=== PATIENT | male | born 1965 | race Caucasian/White ===

== ENCOUNTER 2019-05-10 13:19 | Inpatient (IN) | payer MEDICARE, MEDICAID ==
[~2019-05-10] VITALS: Ht 175.3 cm; Wt 96.6 kg
[~2019-05-10 13:19] MED LIST: ARIP15TA2 PO; QUET300T2 PO; SERT50TA12 PO
[2019-05-10 14:25] LABS: EOSINOPHILS % (AUTO) 0.5 % (1.0-6.0); HEMATOCRIT 46.4 % (41-53); HEMOGLOBIN 15.9 g/dL (13.5-17.5); LYMPHOCYTES # (AUTO) 1.2 K/uL (1.0-4.8); LYMPHOCYTES % (AUTO) 18.6 % (22.0-44.0); MEAN CORPUSCULAR HEMOGLOBIN 30.5 pg (26.0-34.0); MEAN CORPUSCULAR HGB CONC 34.4 G/dL (31.0-37.0); MEAN CORPUSCULAR VOLUME 89 fL (80-100); MONOCYTES # (AUTO) 0.4 K/uL (0.1-1.0); MONOCYTES % (AUTO) 6.5 % (2.0-9.0); NEUTROPHILS # (AUTO) 4.7 K/uL (1.8-7.7); NEUTROPHILS % (AUTO) 73.4 % (40.0-70.0); PLATELET COUNT (AUTO) 255 K/uL (150-450); RED BLOOD CELL COUNT(AUTO) 5.23 MIL/uL (4.50-5.90); RED CELL DISTRIBUTION WIDTH 13.1 % (11.5-14.5)
[2019-05-10 14:27] LABS: GLUCOSE,POINT OF CARE 105 MG/DL (70-110)
[2019-05-10 14:34] LABS: ANION GAP 8 mmol/L (8-16); CALCIUM, TOTAL 9.9 mg/dL (8.8-10.5); CARBON DIOXIDE 28 mmol/L (22-29); CHLORIDE 102 mmol/L (98-107); CREATININE 0.77 mg/dL (0.60-1.30); GLOMERULAR FILTR. RATE CALC > 60 mL/min (>60); GLUCOSE,RANDOM 104 mg/dL (70-110); POTASSIUM 3.9 mmol/L (3.5-5.1); SODIUM SERUM 138 mmol/L (136-145); UREA NITROGEN, BLOOD 10 mg/dL (7-18)
[2019-05-10 14:40] LABS: ALANINE AMINOTRANSFERASE 42 U/L (12-78); ALKALINE PHOSPHATASE 89 U/L (46-116); ASPARTATE AMINOTRANSFERASE 23 U/L (15-37); BILIRUBIN,TOTAL 0.6 mg/dL (0.1-1.0); TOTAL PROTEIN, SERUM 7.5 g/dL (6.4-8.2)
[2019-05-10 14:48] LABS: AMPHET/METH SCREEN,URINE NEGATIVE (NEGATIVE); BARBITURATE SCREEN, URINE NEGATIVE (NEGATIVE); BENZODIAZEPINES SCREEN,URINE NEGATIVE (NEGATIVE); CANNABINOID SCREEN,URINE NEGATIVE (NEGATIVE); COCAINE SCREEN,URINE NEGATIVE (NEGATIVE); METHADONE SCREEN, URINE NEGATIVE (NEGATIVE); OPIATE SCREEN,URINE NEGATIVE (NEGATIVE)
[2019-05-10 14:49] LABS: PHENCYCLIDINE SCREEN,URINE NEGATIVE (NEGATIVE)
[2019-05-10] MEDS ORDERED: ZOLPIDEM TARTRATE 10 MG TABLET PO PRN (17:00)
[2019-05-10] MEDS ORDERED: LORazepam 2 MG TABLET PO PRN (17:00)
[2019-05-10] MEDS ORDERED: HALOPERIDOL 5 MG TABLET PO PRN (17:00)
[2019-05-10 19:30] VITALS: BP 140/90
[2019-05-10] MEDS ORDERED: LORazepam 2 MG/ML VIAL ONE (19:33)
[2019-05-10] MEDS ORDERED: LORazepam 2 MG/ML VIAL IM ONE (19:45)
[2019-05-10] MEDS ORDERED: DiphenhydrAMINE HCL 50 MG/ML VIAL IM ONE (19:45)
[2019-05-10] MEDS ORDERED: HALOPERIDOL LACTATE 5 MG/ML VIAL IM ONE (19:45)
[2019-05-11] MEDS ORDERED: INFLUENZA VIRUS VACCINE QVS 2019-20 (3YR+)/PF 60 MCG/0.5 ML SYRINGE IM ONE (01:15)
[2019-05-11 05:00] VITALS: BP 145/95
[2019-05-11] MEDS: QUEtiapine FUMARATE 200 MG TABLET PO SCH ×2 (08:04→16:47)
[2019-05-11 08:24] VITALS: BP 129/81
[2019-05-11 16:03] VITALS: BP 137/88
[2019-05-11 16:04] VITALS: BP 124/79
[2019-05-12] MEDS: QUEtiapine FUMARATE 200 MG TABLET PO SCH (08:35)
[2019-05-12 09:00] VITALS: BP 127/82
[2019-05-12 09:22] LABS: CHOL/HDL RATIO 6.9 (4.2-7.3)
[2019-05-12 09:23] LABS: FREE T4 (FREE THYROXINE) 0.74 ng/dL (0.76-1.46); THYROID STIMULATING HORMONE 2.08 uIU/mL (0.36-3.74)
== END 2019-05-12 10:20 | disposition home or self-care (01) | DRG 885 ==
LOC: EMS 13:23 → B3A 17:08
PROVIDERS: ADMIT Psychiatry & Neurology Psychiatry; ATTEND Psychiatry & Neurology Psychiatry
DX: F20.0 Paranoid schizophrenia (principal); E78.5 Hyperlipidemia, unspecified; F41.9 Anxiety disorder, unspecified; F32.9 Major depressive disorder, single episode, unspecified; Z28.21 Immunization not carried out because of patient refusal
CPT/HCPCS: 80074; 83036; 84439; 84443; 96372; G0480; J1200; J1630; J2060

== ENCOUNTER 2019-05-12 09:30 | Inpatient (IN) | payer MEDICARE, MEDICAID ==
[~2019-05-12] VITALS: Ht 175.3 cm; Wt 98.7 kg
[~2019-05-12 09:30] MED LIST changes: -ARIP15TA2 PO; -SERT50TA12 PO
[2019-05-12 11:11] LABS: GLUCOMETER DEV NAME(LOC) BV2X.; GLUCOSE,POINT OF CARE 96 MG/DL (70-110)
[2019-05-12 11:32] VITALS: BP 127/85
[2019-05-12] MEDS: QUEtiapine FUMARATE 200 MG TABLET PO SCH ×2 (13:11→20:49)
[2019-05-12 16:07] VITALS: BP 132/96
[2019-05-12] MEDS: ATORVASTATIN CALCIUM 10 MG TABLET PO SCH (20:49)
[2019-05-13] MEDS ORDERED: INFLUENZA VIRUS VACCINE QVS 2019-20 (3YR+)/PF 60 MCG/0.5 ML SYRINGE IM ONE (01:30)
[2019-05-13 07:00] VITALS: BP 139/93
[2019-05-13 08:32] VITALS: BP 140/91
[2019-05-13] MEDS: QUEtiapine FUMARATE 200 MG TABLET PO SCH ×2 (08:37→16:04)
[2019-05-13 16:06] VITALS: BP 139/77
[2019-05-13] MEDS: ATORVASTATIN CALCIUM 10 MG TABLET PO SCH (20:34)
[2019-05-14] MEDS: ZOLPIDEM TARTRATE 10 MG TABLET PO PRN (01:31)
[2019-05-14 08:12] VITALS: BP 140/85
[2019-05-14] MEDS: QUEtiapine FUMARATE 200 MG TABLET PO SCH ×2 (09:00→16:04)
[2019-05-14] MEDS: HALOPERIDOL 5 MG TABLET PO PRN (12:41)
[2019-05-14 16:10] VITALS: BP 138/76
[2019-05-14] MEDS: ATORVASTATIN CALCIUM 10 MG TABLET PO SCH (20:38)
[2019-05-15] MEDS: ZOLPIDEM TARTRATE 10 MG TABLET PO PRN (01:17)
[2019-05-15 02:14] VITALS: BP 152/92
[2019-05-15 08:10] LABS: CHOL/HDL RATIO 7.4 (4.2-7.3)
[2019-05-15] MEDS: LORazepam 2 MG TABLET PO PRN (08:12)
[2019-05-15] MEDS: QUEtiapine FUMARATE 200 MG TABLET PO SCH ×2 (08:12→16:34)
[2019-05-15 08:21] VITALS: BP 142/103
[2019-05-15 11:11] VITALS: BP 119/67
[2019-05-15 16:05] VITALS: BP 138/85
[2019-05-15] MEDS: ATORVASTATIN CALCIUM 10 MG TABLET PO SCH (20:34)
[2019-05-16 00:55] VITALS: BP 126/69
[2019-05-16] MEDS: QUEtiapine FUMARATE 200 MG TABLET PO SCH ×2 (08:11→16:27)
[2019-05-16 08:19] VITALS: BP 132/85
[2019-05-16] MEDS: ATORVASTATIN CALCIUM 10 MG TABLET PO SCH (20:36)
[2019-05-17 03:47] VITALS: BP 145/97
[2019-05-17] MEDS: QUEtiapine FUMARATE 200 MG TABLET PO SCH ×2 (08:01→20:18)
[2019-05-17 10:17] VITALS: BP 121/89
[2019-05-17 16:07] VITALS: BP 140/90
[2019-05-17] MEDS: ATORVASTATIN CALCIUM 10 MG TABLET PO SCH (20:18)
[2019-05-18] MEDS: HALOPERIDOL 5 MG TABLET PO PRN (05:28)
[2019-05-18] MEDS ORDERED: DiphenhydrAMINE HCL 50 MG/ML VIAL ONE (05:48)
[2019-05-18] MEDS ORDERED: LORazepam 2 MG/ML VIAL ONE (05:48)
[2019-05-18] MEDS ORDERED: HALOPERIDOL LACTATE 5 MG/ML VIAL ONE (05:49)
[2019-05-18] MEDS ORDERED: HALOPERIDOL LACTATE 5 MG/ML VIAL IM ONE (06:00)
[2019-05-18] MEDS ORDERED: DiphenhydrAMINE HCL 50 MG/ML VIAL IM ONE (06:00)
[2019-05-18] MEDS ORDERED: LORazepam 2 MG/ML VIAL IM ONE (06:00)
[2019-05-18 06:21] VITALS: BP 140/83
[2019-05-18 06:45] VITALS: BP 126/77
[2019-05-18 08:14] VITALS: BP 123/78
[2019-05-18] MEDS: QUEtiapine FUMARATE 200 MG TABLET PO SCH ×2 (10:08→20:34)
[2019-05-18] MEDS: OMEGA-3/DHA/EPA/FISH OIL 1,000 MG CAPSULE PO SCH (10:08)
[2019-05-18 16:13] VITALS: BP 127/72
[2019-05-18] MEDS: ATORVASTATIN CALCIUM 10 MG TABLET PO SCH (20:34)
[2019-05-19 01:55] VITALS: BP 116/89
[2019-05-19] MEDS: QUEtiapine FUMARATE 200 MG TABLET PO SCH ×2 (08:07→20:17)
[2019-05-19] MEDS: OMEGA-3/DHA/EPA/FISH OIL 1,000 MG CAPSULE PO SCH (08:07)
[2019-05-19 08:21] VITALS: BP 140/90
[2019-05-19] MEDS: ATORVASTATIN CALCIUM 10 MG TABLET PO SCH (20:17)
[2019-05-20] MEDS: QUEtiapine FUMARATE 200 MG TABLET PO SCH ×2 (08:41→20:06)
[2019-05-20] MEDS: OMEGA-3/DHA/EPA/FISH OIL 1,000 MG CAPSULE PO SCH (08:41)
[2019-05-20 16:42] VITALS: BP 135/83
[2019-05-20] MEDS: ATORVASTATIN CALCIUM 10 MG TABLET PO SCH (20:06)
[2019-05-21] MEDS: OMEGA-3/DHA/EPA/FISH OIL 1,000 MG CAPSULE PO SCH (08:09)
[2019-05-21] MEDS: QUEtiapine FUMARATE 200 MG TABLET PO SCH ×2 (08:09→20:29)
[2019-05-21 08:18] VITALS: BP 139/96
[2019-05-21 16:44] VITALS: BP 139/74
[2019-05-21] MEDS: ATORVASTATIN CALCIUM 10 MG TABLET PO SCH (20:29)
[2019-05-22 08:07] VITALS: BP 120/90
[2019-05-22] MEDS: QUEtiapine FUMARATE 200 MG TABLET PO SCH ×2 (08:52→20:34)
[2019-05-22] MEDS: OMEGA-3/DHA/EPA/FISH OIL 1,000 MG CAPSULE PO SCH (08:52)
[2019-05-22 17:57] VITALS: BP 126/76
[2019-05-22] MEDS: ATORVASTATIN CALCIUM 10 MG TABLET PO SCH (20:34)
[2019-05-23 06:42] VITALS: BP 154/98
[2019-05-23] MEDS: OMEGA-3/DHA/EPA/FISH OIL 1,000 MG CAPSULE PO SCH (08:38)
[2019-05-23] MEDS: QUEtiapine FUMARATE 200 MG TABLET PO SCH ×2 (08:38→20:35)
[2019-05-23 16:18] VITALS: BP 139/100
[2019-05-23] MEDS: ATORVASTATIN CALCIUM 10 MG TABLET PO SCH (20:35)
[2019-05-24 06:15] VITALS: BP 135/80
[2019-05-24] MEDS: OMEGA-3/DHA/EPA/FISH OIL 1,000 MG CAPSULE PO SCH (08:15)
[2019-05-24] MEDS: LORazepam 2 MG TABLET PO PRN (08:15)
[2019-05-24] MEDS: QUEtiapine FUMARATE 200 MG TABLET PO SCH ×2 (08:15→20:36)
[2019-05-24 16:58] VITALS: BP 139/72
[2019-05-24] MEDS: ATORVASTATIN CALCIUM 10 MG TABLET PO SCH (20:35)
[2019-05-25 06:53] VITALS: BP 134/79
[2019-05-25] MEDS ORDERED: QUET200T PO ×2 (08:25)
[2019-05-25] MEDS ORDERED: ATOR10TA84 PO (08:25)
[2019-05-25] MEDS: OMEGA-3/DHA/EPA/FISH OIL 1,000 MG CAPSULE PO SCH (08:28)
[2019-05-25] MEDS: LORazepam 2 MG TABLET PO PRN (08:28)
[2019-05-25] MEDS: QUEtiapine FUMARATE 200 MG TABLET PO SCH (08:28)
[2019-05-25 08:43] VITALS: BP 147/87
== END 2019-05-25 13:25 | disposition home or self-care (01) | DRG 885 ==
LOC: B2X 10:22
PROVIDERS: ADMIT Psychiatry & Neurology Psychiatry; ATTEND Psychiatry & Neurology Psychiatry
DX: F20.0 Paranoid schizophrenia (principal); E78.5 Hyperlipidemia, unspecified; R82.4 Acetonuria; I10 Essential (primary) hypertension; K21.9 Gastro-esophageal reflux disease without esophagitis; Z28.21 Immunization not carried out because of patient refusal
CPT/HCPCS: J1200; J1630; J2060

== ENCOUNTER 2023-03-27 13:16 | Inpatient (IN) | payer MEDICARE, MEDICAID ==
[~2023-03-27] VITALS: Ht 167.6 cm; Wt 89.5 kg
[~2023-03-27 13:16] MED LIST changes: +ATOR10TA PO; +QUET200T PO; -QUET300T2 PO
[2023-03-27 14:18] LABS: COVID AG,FIA SOURCE NASAL SWAB
[2023-03-27 14:22] LABS: BASOPHILS % (AUTO) 0.3 % (0.0-2.0); EOSINOPHILS % (AUTO) 0.9 % (1.0-6.0); HEMOGLOBIN 13.9 g/dL (13.5-17.5); LYMPHOCYTES % (AUTO) 19.4 % (22.0-44.0); MEAN CORPUSCULAR HEMOGLOBIN 31.4 pg (26.0-34.0); MEAN CORPUSCULAR VOLUME 92 fL (80-100); MONOCYTES # (AUTO) 0.4 K/uL (0.1-1.0); MONOCYTES % (AUTO) 7.8 % (2.0-9.0); NEUTROPHILS # (AUTO) 3.5 K/uL (1.8-7.7); NEUTROPHILS % (AUTO) 71.6 % (40.0-70.0); PLATELET COUNT (AUTO) 294 K/uL (150-450); RED BLOOD CELL COUNT(AUTO) 4.44 MIL/uL (4.50-5.90); RED CELL DISTRIBUTION WIDTH 12.8 % (11.5-14.5); WHITE BLOOD COUNT (AUTO) 4.9 K/uL (4.5-11.0)
[2023-03-27] MEDS ORDERED: QUEtiapine FUMARATE 100 MG TABLET PO ONE (14:30)
[2023-03-27 14:36] LABS: ALCOHOL, BLOOD (SERUM) < 3 mg/dL (0-10)
[2023-03-27 14:40] LABS: ANION GAP 7 mmol/L (8-16); CALCIUM, TOTAL 8.9 mg/dL (8.8-10.5); CARBON DIOXIDE 31 mmol/L (22-29); CHLORIDE 103 mmol/L (98-107); CREATININE 0.79 mg/dL (0.60-1.30); GLOMERULAR FILTR. RATE CALC > 60 mL/min (>60); GLUCOSE,RANDOM 102 mg/dL (70-110); POTASSIUM 3.8 mmol/L (3.5-5.1); SODIUM SERUM 141 mmol/L (136-145); UREA NITROGEN, BLOOD 15 mg/dL (7-18)
[2023-03-27 14:42] LABS: SARS-COV2 (COVID) ANTIGEN,FIA Negative (Negative)
[2023-03-27 15:10] LABS: ALANINE AMINOTRANSFERASE 23 U/L (12-78); ALBUMIN 3.9 g/dL (3.4-5.0); ALKALINE PHOSPHATASE 71 U/L (46-116); ASPARTATE AMINOTRANSFERASE 20 U/L (15-37); BILIRUBIN,TOTAL 0.6 mg/dL (0.1-1.0)
[2023-03-27] MEDS ORDERED: ZOLPIDEM TARTRATE 10 MG TABLET PO PRN (15:45)
[2023-03-27 17:24] LABS: PH,URINE DRUG SCREEN 6.5 (5.0-8.0)
[2023-03-27 17:31] LABS: ALCOHOL, URINE DRUG SCREEN NEGATIVE (NEGATIVE); AMPHET/METH SCREEN,URINE NEGATIVE (NEGATIVE); BARBITURATE SCREEN, URINE NEGATIVE (NEGATIVE); BENZODIAZEPINES SCREEN,URINE NEGATIVE (NEGATIVE); CANNABINOID SCREEN,URINE NEGATIVE (NEGATIVE); COCAINE SCREEN,URINE NEGATIVE (NEGATIVE); METHADONE SCREEN, URINE NEGATIVE (NEGATIVE); OPIATE SCREEN,URINE NEGATIVE (NEGATIVE); PHENCYCLIDINE SCREEN,URINE NEGATIVE (NEGATIVE)
[2023-03-27 22:39] VITALS: BP 117/72; PULSE 58; RESP 18; TEMP 97.1
[2023-03-27] MEDS ORDERED: MAGNESIUM HYDROXIDE SUSPENSION 30 ML UDCUP PO PRN (23:00)
[2023-03-27] MEDS ORDERED: DOCUSATE SODIUM 100 MG CAPSULE PO PRN (23:00)
[2023-03-27] MEDS ORDERED: LOPERAMIDE HCL 2 MG CAPSULE PO PRN (23:00)
[2023-03-27] MEDS ORDERED: MAG HYDROX/ALUMINUM HYD/SIMETH ES 30 ML SUSPENSION UDCUP PO PRN (23:00)
[2023-03-27] MEDS ORDERED: GuaiFENesin/D-METHORPHAN [SUGAR-FREE] 200-20MG/10 ML SYRUP UDCUP PO PRN (23:00)
[2023-03-27] MEDS ORDERED: IBUPROFEN 400 MG TABLET PO PRN (23:00)
[2023-03-27] MEDS ORDERED: ACETAMINOPHEN 325 MG TABLET PO PRN (23:00)
[2023-03-27] MEDS ORDERED: ALBUTEROL SULFATE HFA 90 MCG/PUFF 8 GM INHALER IH PRN (23:00)
[2023-03-27] MEDS ORDERED: CloNIDine HCL 0.1 MG TABLET PO PRN (23:00)
[2023-03-27] MEDS ORDERED: NICOTINE 14 MG/24 HOUR PATCH TD PRN (23:00)
[2023-03-27] MEDS ORDERED: ONDANSETRON HCL 4 MG TABLET PO PRN (23:00)
[2023-03-27] MEDS ORDERED: PETROLATUM,WHITE 28 GM JELLY TP PRN (23:00)
[2023-03-28] MEDS: HALOPERIDOL 5 MG TABLET PO PRN (08:16)
[2023-03-28] MEDS: LORazepam 2 MG TABLET PO PRN (08:16)
[2023-03-28 08:56] VITALS: BP 141/87; PULSE 68; RESP 17; TEMP 97.8
[2023-03-28] MEDS ORDERED: QUET200T30 PO (11:00)
[2023-03-28] MEDS ORDERED: BENZ1TAB84 PO (11:00)
[2023-03-28] MEDS: QUEtiapine FUMARATE 200 MG TABLET PO SCH (18:19)
[2023-03-28] MEDS: BENZTROPINE MESYLATE 1 MG TABLET PO SCH (18:19)
[2023-03-28 21:13] VITALS: RESP 18
[2023-03-29 08:42] VITALS: BP 132/89; PULSE 60; RESP 17; TEMP 97.8
[2023-03-29] MEDS: BENZTROPINE MESYLATE 1 MG TABLET PO SCH ×2 (10:08→16:29)
[2023-03-29] MEDS: HALOPERIDOL 5 MG TABLET PO PRN ×2 (10:08→14:11)
[2023-03-29] MEDS: QUEtiapine FUMARATE 200 MG TABLET PO SCH ×2 (10:08→16:29)
[2023-03-29] MEDS: LORazepam 2 MG TABLET PO PRN ×2 (10:09→14:11)
[2023-03-29 21:44] VITALS: RESP 18
[2023-03-30] MEDS: BENZTROPINE MESYLATE 1 MG TABLET PO SCH ×2 (09:03→17:45)
[2023-03-30] MEDS: LORazepam 2 MG TABLET PO PRN (09:03)
[2023-03-30] MEDS: QUEtiapine FUMARATE 200 MG TABLET PO SCH ×2 (09:03→17:45)
[2023-03-30] MEDS: HALOPERIDOL 5 MG TABLET PO PRN (09:50)
[2023-03-30 09:55] VITALS: BP 122/73; PULSE 87; RESP 18; TEMP 98.2
[2023-03-30 20:40] VITALS: RESP 18
[2023-03-31] MEDS: QUEtiapine FUMARATE 200 MG TABLET PO SCH ×3 (08:10→16:14)
[2023-03-31] MEDS: BENZTROPINE MESYLATE 1 MG TABLET PO SCH ×3 (08:10→16:14)
[2023-03-31 08:17] VITALS: BP 160/100; PULSE 91; RESP 20; TEMP 98
[2023-03-31] MEDS: LORazepam 2 MG TABLET PO PRN (15:33)
[2023-03-31] MEDS: HALOPERIDOL 5 MG TABLET PO PRN (15:33)
[2023-03-31 20:32] VITALS: RESP 18
[2023-04-01] MEDS: BENZTROPINE MESYLATE 1 MG TABLET PO SCH ×3 (08:37→22:42)
[2023-04-01] MEDS: QUEtiapine FUMARATE 200 MG TABLET PO SCH ×3 (08:37→22:42)
[2023-04-01 09:02] VITALS: BP 121/63; PULSE 70; RESP 20; TEMP 98.3
[2023-04-01] MEDS: LORazepam 2 MG TABLET PO PRN (14:06)
[2023-04-01] MEDS: HALOPERIDOL 5 MG TABLET PO PRN (14:06)
[2023-04-01] MEDS: DIVALPROEX SODIUM 500 MG DR TABLET PO SCH ×2 (21:00→22:42)
[2023-04-01 21:31] VITALS: RESP 18
[2023-04-02] MEDS: BENZTROPINE MESYLATE 1 MG TABLET PO SCH ×2 (08:24→22:28)
[2023-04-02] MEDS: DIVALPROEX SODIUM 500 MG DR TABLET PO SCH ×2 (08:25→22:26)
[2023-04-02] MEDS: QUEtiapine FUMARATE 200 MG TABLET PO SCH ×2 (08:25→22:26)
[2023-04-02 08:31] VITALS: BP 141/87; PULSE 87; RESP 19; TEMP 98.3
[2023-04-02] MEDS: LORazepam 2 MG TABLET PO PRN (14:45)
[2023-04-02] MEDS: HALOPERIDOL 5 MG TABLET PO PRN (14:45)
[2023-04-02 20:43] VITALS: RESP 18
[2023-04-03 08:29] VITALS: BP 150/80; PULSE 87; RESP 17; TEMP 97.5
[2023-04-03] MEDS: LORazepam 2 MG TABLET PO PRN ×2 (08:56→17:41)
[2023-04-03] MEDS: HALOPERIDOL 5 MG TABLET PO PRN ×2 (08:57→17:41)
[2023-04-03] MEDS: QUEtiapine FUMARATE 200 MG TABLET PO SCH ×2 (09:04→20:38)
[2023-04-03] MEDS: BENZTROPINE MESYLATE 1 MG TABLET PO SCH ×2 (09:04→20:38)
[2023-04-03] MEDS: DIVALPROEX SODIUM 500 MG DR TABLET PO SCH ×2 (09:04→20:38)
[2023-04-03 20:35] VITALS: RESP 18
[2023-04-04] MEDS: BENZTROPINE MESYLATE 1 MG TABLET PO SCH ×2 (07:57→22:00)
[2023-04-04] MEDS: DIVALPROEX SODIUM 500 MG DR TABLET PO SCH ×2 (07:57→22:00)
[2023-04-04] MEDS: QUEtiapine FUMARATE 200 MG TABLET PO SCH ×2 (07:57→22:00)
[2023-04-04 08:18] VITALS: BP 141/79; PULSE 81; RESP 18; TEMP 98
[2023-04-04] MEDS: HALOPERIDOL 5 MG TABLET PO PRN (15:55)
[2023-04-04] MEDS: LORazepam 2 MG TABLET PO PRN (15:55)
[2023-04-04 20:05] VITALS: RESP 18
[2023-04-05] MEDS: LORazepam 2 MG TABLET PO PRN ×2 (07:56→16:40)
[2023-04-05] MEDS: DIVALPROEX SODIUM 500 MG DR TABLET PO SCH ×2 (07:56→20:51)
[2023-04-05] MEDS: BENZTROPINE MESYLATE 1 MG TABLET PO SCH ×2 (07:56→20:51)
[2023-04-05] MEDS: QUEtiapine FUMARATE 200 MG TABLET PO SCH ×2 (07:56→20:51)
[2023-04-05 08:02] VITALS: BP 136/86; PULSE 82; RESP 18; TEMP 98.3
[2023-04-05] MEDS: HALOPERIDOL 5 MG TABLET PO PRN (16:40)
[2023-04-05 20:05] VITALS: RESP 18
[2023-04-06 08:09] VITALS: BP 153/88; PULSE 80; RESP 18; TEMP 97.6
[2023-04-06] MEDS: QUEtiapine FUMARATE 200 MG TABLET PO SCH ×2 (08:17→20:29)
[2023-04-06] MEDS: BENZTROPINE MESYLATE 1 MG TABLET PO SCH ×2 (08:17→20:29)
[2023-04-06] MEDS: DIVALPROEX SODIUM 500 MG DR TABLET PO SCH ×2 (08:17→20:29)
[2023-04-06] MEDS: LORazepam 2 MG TABLET PO PRN (09:01)
[2023-04-06] MEDS: HALOPERIDOL 5 MG TABLET PO PRN (09:01)
[2023-04-06 20:14] VITALS: RESP 18
[2023-04-06 20:47] VITALS: BP 112/70; PULSE 66; RESP 19; TEMP 97.4
[2023-04-07] MEDS: QUEtiapine FUMARATE 200 MG TABLET PO SCH ×2 (08:28→20:51)
[2023-04-07] MEDS: BENZTROPINE MESYLATE 1 MG TABLET PO SCH ×2 (08:28→20:51)
[2023-04-07] MEDS: DIVALPROEX SODIUM 500 MG DR TABLET PO SCH ×2 (08:28→20:51)
[2023-04-07] MEDS: LORazepam 2 MG TABLET PO PRN ×2 (09:08→19:55)
[2023-04-07] MEDS: HALOPERIDOL 5 MG TABLET PO PRN ×2 (09:08→19:55)
[2023-04-07 09:36] VITALS: BP 141/77; PULSE 74; RESP 18; TEMP 97.6
[2023-04-07 20:01] VITALS: BP 113/65; PULSE 69; RESP 18; TEMP 98.3
[2023-04-08] MEDS: BENZTROPINE MESYLATE 1 MG TABLET PO SCH ×4 (08:38→21:05)
[2023-04-08] MEDS: DIVALPROEX SODIUM 500 MG DR TABLET PO SCH ×4 (08:38→21:05)
[2023-04-08] MEDS: QUEtiapine FUMARATE 200 MG TABLET PO SCH ×4 (08:38→21:05)
[2023-04-08 09:25] VITALS: RESP 18; TEMP 97.1
[2023-04-08 22:50] VITALS: RESP 18
[2023-04-09] MEDS: QUEtiapine FUMARATE 200 MG TABLET PO SCH ×2 (07:37→20:12)
[2023-04-09] MEDS: BENZTROPINE MESYLATE 1 MG TABLET PO SCH ×2 (07:37→20:13)
[2023-04-09] MEDS: LORazepam 2 MG TABLET PO PRN ×2 (07:37→15:00)
[2023-04-09] MEDS: DIVALPROEX SODIUM 500 MG DR TABLET PO SCH ×2 (07:38→20:12)
[2023-04-09] MEDS: HALOPERIDOL 5 MG TABLET PO PRN (15:00)
[2023-04-09 21:42] VITALS: RESP 18
[2023-04-10 08:15] VITALS: BP 152/95; PULSE 86; RESP 18; TEMP 97.4
[2023-04-10] MEDS: DIVALPROEX SODIUM 500 MG DR TABLET PO SCH ×2 (08:53→20:38)
[2023-04-10] MEDS: LORazepam 2 MG TABLET PO PRN ×2 (08:53→19:55)
[2023-04-10] MEDS: QUEtiapine FUMARATE 200 MG TABLET PO SCH ×2 (08:53→20:38)
[2023-04-10] MEDS: BENZTROPINE MESYLATE 1 MG TABLET PO SCH ×2 (08:53→20:38)
[2023-04-10] MEDS: HALOPERIDOL 5 MG TABLET PO PRN (19:55)
[2023-04-11 08:23] VITALS: BP 128/80; PULSE 71; RESP 18; TEMP 98.1
[2023-04-11] MEDS: DIVALPROEX SODIUM 500 MG DR TABLET PO SCH ×2 (08:45→20:40)
[2023-04-11] MEDS: BENZTROPINE MESYLATE 1 MG TABLET PO SCH ×2 (08:46→20:40)
[2023-04-11] MEDS: QUEtiapine FUMARATE 200 MG TABLET PO SCH ×2 (08:46→20:40)
[2023-04-12] MEDS: LORazepam 2 MG TABLET PO PRN (05:35)
[2023-04-12] MEDS: HALOPERIDOL 5 MG TABLET PO PRN (05:35)
[2023-04-12] MEDS: DIVALPROEX SODIUM 500 MG DR TABLET PO SCH ×2 (08:05→21:50)
[2023-04-12] MEDS: BENZTROPINE MESYLATE 1 MG TABLET PO SCH ×2 (08:05→21:50)
[2023-04-12] MEDS: QUEtiapine FUMARATE 200 MG TABLET PO SCH ×2 (08:05→21:49)
[2023-04-12 09:51] VITALS: RESP 18
[2023-04-12 20:00] VITALS: BP 129/83; PULSE 80; RESP 18; TEMP 98.1
[2023-04-13 08:03] VITALS: BP 140/79; PULSE 77; RESP 18; TEMP 98.5
[2023-04-13] MEDS: LORazepam 2 MG TABLET PO PRN (08:53)
[2023-04-13] MEDS: HALOPERIDOL 5 MG TABLET PO PRN (08:54)
[2023-04-13] MEDS: QUEtiapine FUMARATE 200 MG TABLET PO SCH (08:55)
[2023-04-13] MEDS: BENZTROPINE MESYLATE 1 MG TABLET PO SCH (08:55)
[2023-04-13] MEDS: DIVALPROEX SODIUM 500 MG DR TABLET PO SCH (08:55)
[2023-04-13] MEDS ORDERED: BENZ1TAB84 PO (10:30)
[2023-04-13] MEDS ORDERED: DIVA-112 PO (10:30)
[2023-04-13] MEDS ORDERED: QUET200T30 PO (10:30)
== END 2023-04-13 11:45 | disposition home or self-care (01) | DRG 885 ==
LOC: EMS 13:17 → 3EC 18:55
PROVIDERS: ADMIT Psychiatry & Neurology Psychiatry; ATTEND Psychiatry & Neurology Psychiatry
PROC: GZHZZZZ Group Psychotherapy (ICD-10-PCS; principal; 2023-03-29)
DX: F20.0 Paranoid schizophrenia (principal); F79 Unspecified intellectual disabilities; F41.9 Anxiety disorder, unspecified; E78.5 Hyperlipidemia, unspecified; Z20.822 Contact with and (suspected) exposure to COVID-19; R03.0 Elevated blood-pressure reading, without diagnosis of hypertension; G47.00 Insomnia, unspecified; Z79.899 Other long term (current) drug therapy
CPT/HCPCS: 80053; 80164; 80307; 85025; 99285; G0480

== ENCOUNTER 2023-10-14 12:03 | Inpatient (IN) | payer MEDICAID, MEDICARE ==
[~2023-10-14] VITALS: Ht 175.3 cm; Wt 78.3 kg
[~2023-10-14 12:03] MED LIST changes: -ATOR10TA PO; +BENZ-247 PO; +DIVA-112 PO; -QUET200T PO; +QUET200T30 PO
[2023-10-14 12:50] LABS: BASOPHILS % (AUTO) 0.9 % (0.0-2.0); EOSINOPHILS % (AUTO) 1.3 % (1.0-6.0); HEMATOCRIT 42.7 % (41-53); HEMOGLOBIN 14.1 g/dL (13.5-17.5); LYMPHOCYTES # (AUTO) 1.4 K/uL (1.0-4.8); LYMPHOCYTES % (AUTO) 30.9 % (22.0-44.0); MEAN CORPUSCULAR HEMOGLOBIN 30.8 pg (26.0-34.0); MEAN CORPUSCULAR VOLUME 93 fL (80-100); MONOCYTES # (AUTO) 0.4 K/uL (0.1-1.0); NEUTROPHILS # (AUTO) 2.6 K/uL (1.8-7.7); NEUTROPHILS % (AUTO) 58.9 % (40.0-70.0); PLATELET COUNT (AUTO) 247 K/uL (150-450); RED BLOOD CELL COUNT(AUTO) 4.57 MIL/uL (4.50-5.90); RED CELL DISTRIBUTION WIDTH 12.9 % (11.5-14.5); WHITE BLOOD COUNT (AUTO) 4.4 K/uL (4.5-11.0)
[2023-10-14 12:59] LABS: COVID AG,FIA SOURCE NASAL SWAB
[2023-10-14 12:59] LABS: ANION GAP 8 mmol/L (8-16); CALCIUM, TOTAL 8.8 mg/dL (8.8-10.5); CARBON DIOXIDE 28 mmol/L (22-29); CHLORIDE 102 mmol/L (98-107); GLOMERULAR FILTR. RATE CALC > 60 mL/min (>60); GLUCOSE,RANDOM 107 mg/dL (70-110); POTASSIUM 3.7 mmol/L (3.5-5.1); SODIUM SERUM 138 mmol/L (136-145); UREA NITROGEN, BLOOD 9 mg/dL (7-18)
[2023-10-14 13:05] LABS: ALANINE AMINOTRANSFERASE 26 U/L (12-78); ALBUMIN 3.5 g/dL (3.4-5.0); ALKALINE PHOSPHATASE 77 U/L (46-116); ASPARTATE AMINOTRANSFERASE 22 U/L (15-37); BILIRUBIN,TOTAL 0.8 mg/dL (0.1-1.0); TOTAL PROTEIN, SERUM 6.7 g/dL (6.4-8.2)
[2023-10-14 13:18] LABS: ALCOHOL, BLOOD (SERUM) < 3 mg/dL (0-10)
[2023-10-14 13:34] LABS: SARS-COV2 (COVID) ANTIGEN,FIA Negative (Negative)
[2023-10-14 13:52] LABS: APPEARANCE,URINE CLEAR (CLEAR); BILIRUBIN,URINE NEGATIVE (NEGATIVE); COLOR,URINE LIGHT YELLOW (YELLOW); GLUCOSE, URINE (UA) NEGATIVE (NEGATIVE); KETONES,URINE NEGATIVE (NEGATIVE); LEUKOCYTE ESTERASE ,URINE NEGATIVE (NEGATIVE); NITRATE,URINE NEGATIVE (NEGATIVE); OCCULT BLOOD,URINE NEGATIVE (NEGATIVE); PROTEIN,URINE NEGATIVE (NEGATIVE); SPECIFIC GRAVITIY, URINE 1.012 (1.003-1.030); UROBILINOGEN,URINE <=1.0 mg/dL (<=1.0)
[2023-10-14 13:58] LABS: ALCOHOL, URINE DRUG SCREEN NEGATIVE (NEGATIVE); AMPHET/METH SCREEN,URINE NEGATIVE (NEGATIVE); BARBITURATE SCREEN, URINE NEGATIVE (NEGATIVE); BENZODIAZEPINES SCREEN,URINE NEGATIVE (NEGATIVE); CANNABINOID SCREEN,URINE NEGATIVE (NEGATIVE); COCAINE SCREEN,URINE NEGATIVE (NEGATIVE); METHADONE SCREEN, URINE NEGATIVE (NEGATIVE); OPIATE SCREEN,URINE NEGATIVE (NEGATIVE); PHENCYCLIDINE SCREEN,URINE NEGATIVE (NEGATIVE)
[2023-10-14 22:10] VITALS: BP 149/84; PULSE 70; RESP 17; TEMP 98.6; O2SAT 98
[2023-10-15 08:57] VITALS: BP 119/69; PULSE 66; RESP 17; TEMP 98.6; O2SAT 99
[2023-10-15] MEDS: BENZTROPINE MESYLATE 1 MG TABLET PO SCH (09:42)
[2023-10-15] MEDS: QUEtiapine FUMARATE 200 MG TABLET PO SCH (09:42)
[2023-10-15] MEDS: DIVALPROEX SODIUM 500 MG DR TABLET PO SCH (09:42)
[2023-10-15] MEDS ORDERED: IBUPROFEN 600 MG TABLET PO PRN (11:00)
[2023-10-15] MEDS ORDERED: ALBUTEROL SULFATE HFA 90 MCG/PUFF 8 GM INHALER IH PRN (11:00)
[2023-10-15] MEDS ORDERED: DOCUSATE SODIUM 100 MG CAPSULE PO PRN (11:00)
[2023-10-15] MEDS ORDERED: PETROLATUM,WHITE 28 GM JELLY TP PRN (11:00)
[2023-10-15] MEDS ORDERED: ONDANSETRON HCL 4 MG TABLET PO PRN (11:00)
[2023-10-15] MEDS ORDERED: MAG HYDROX/ALUMINUM HYD/SIMETH ES 30 ML SUSPENSION UDCUP PO PRN (11:00)
[2023-10-15] MEDS ORDERED: BENZOCAINE/MENTHOL LOZENGE PO PRN (11:00)
[2023-10-15] MEDS ORDERED: OMEPRAZOLE 20 MG CAPSULE PO PRN (11:00)
[2023-10-15] MEDS ORDERED: ACETAMINOPHEN 325 MG TABLET PO PRN (11:00)
[2023-10-15] MEDS ORDERED: LOPERAMIDE HCL 2 MG CAPSULE PO PRN (11:00)
[2023-10-15] MEDS ORDERED: MAGNESIUM HYDROXIDE SUSPENSION 30 ML UDCUP PO PRN (11:00)
[2023-10-15] MEDS ORDERED: BACITRACIN 28 GM OINTMENT TP PRN (11:00)
[2023-10-15] MEDS ORDERED: CloNIDine HCL 0.1 MG TABLET PO PRN (11:00)
[2023-10-15 20:02] VITALS: RESP 16
[2023-10-15] MEDS: LORazepam 2 MG TABLET PO PRN (20:30)
[2023-10-16 08:08] VITALS: BP 129/73; PULSE 81; RESP 17; TEMP 97.7; O2SAT 96
[2023-10-16 20:03] VITALS: RESP 16
[2023-10-17 08:14] VITALS: BP 147/75; PULSE 106; RESP 18; TEMP 96.4; O2SAT 96
[2023-10-17 21:04] VITALS: BP 103/62; PULSE 75; O2SAT 95
[2023-10-18 08:22] VITALS: BP 118/78; PULSE 81; RESP 17; TEMP 98.2; O2SAT 98
[2023-10-18 20:30] VITALS: BP 117/80; PULSE 91; TEMP 97.8; O2SAT 97
[2023-10-18] MEDS: ZOLPIDEM TARTRATE 10 MG TABLET PO PRN (20:52)
[2023-10-19 08:01] VITALS: BP 111/64; PULSE 66; RESP 18; TEMP 97.9; O2SAT 96
[2023-10-19] MEDS: HALOPERIDOL 5 MG TABLET PO PRN (17:14)
[2023-10-19 20:02] VITALS: BP 119/64; PULSE 69; TEMP 97.8; O2SAT 98
[2023-10-20 08:08] VITALS: BP 132/71; PULSE 61; RESP 18; TEMP 98.4; O2SAT 98
[2023-10-20 21:11] VITALS: BP 140/78; PULSE 83; RESP 18; TEMP 97.9; O2SAT 96
[2023-10-21 08:27] VITALS: BP 115/62; PULSE 69; RESP 17; TEMP 96; O2SAT 98
[2023-10-21 20:38] VITALS: BP 135/83; PULSE 88; RESP 20; TEMP 98; O2SAT 99
[2023-10-22 08:35] VITALS: BP 106/60; PULSE 55; RESP 18; TEMP 97.7; O2SAT 97
[2023-10-23 08:37] VITALS: BP 114/60; PULSE 68; RESP 15; TEMP 98.3; O2SAT 95
[2023-10-23 20:24] VITALS: BP 132/74; PULSE 75; RESP 18; TEMP 97.9; O2SAT 97
[2023-10-24 08:13] VITALS: BP 127/70; PULSE 77; RESP 18; TEMP 97.8; O2SAT 96
[2023-10-24 20:06] VITALS: BP 148/84; PULSE 73; RESP 18; TEMP 98.1; O2SAT 98
[2023-10-25 08:09] VITALS: BP 125/85; PULSE 62; RESP 18; TEMP 97.1; O2SAT 99
[2023-10-25 20:23] VITALS: BP 130/80; PULSE 70; RESP 18; TEMP 98.2; O2SAT 99
[2023-10-26 08:09] VITALS: BP 115/63; PULSE 66; RESP 18; TEMP 97.9; O2SAT 99
[2023-10-26 20:22] VITALS: BP 126/79; PULSE 60; RESP 18; TEMP 97.6; O2SAT 91
[2023-10-27 08:25] VITALS: BP 129/79; PULSE 73; RESP 18; TEMP 96.1; O2SAT 97
[2023-10-27 20:24] VITALS: BP 143/80; PULSE 77; RESP 18; TEMP 97.2; O2SAT 97
[2023-10-28 08:46] VITALS: BP 118/65; PULSE 69; RESP 18; TEMP 98.2; O2SAT 96
[2023-10-28 20:12] VITALS: BP 119/82; PULSE 67; RESP 18; TEMP 98.1; O2SAT 98
[2023-10-29 08:43] VITALS: BP 126/90; PULSE 65; RESP 18; TEMP 97.8; O2SAT 96
[2023-10-29 20:07] VITALS: BP 121/81; PULSE 70; RESP 18; TEMP 97.9
[2023-10-30 08:41] VITALS: BP 132/67; PULSE 63; RESP 17; TEMP 98.2; O2SAT 97
[2023-10-30 20:00] VITALS: BP 123/73; PULSE 64; RESP 19; TEMP 98; O2SAT 98
[2023-10-31 08:41] VITALS: BP 121/74; PULSE 57; RESP 18; TEMP 97.8; O2SAT 96
[2023-10-31 20:18] VITALS: BP 129/84; PULSE 65; RESP 17; TEMP 98.4; O2SAT 97
[2023-11-01 08:16] VITALS: BP 132/74; PULSE 67; RESP 16; TEMP 98.5; O2SAT 98
[2023-11-02 23:30] VITALS: RESP 18
[2023-11-03 08:22] VITALS: BP 132/78; PULSE 66; RESP 17; TEMP 97.6; O2SAT 95
[2023-11-03] MEDS ORDERED: BENZ-247 PO (10:31)
[2023-11-03] MEDS ORDERED: DIVA-112 PO (10:32)
[2023-11-03] MEDS ORDERED: QUET200T PO (10:33)
== END 2023-11-03 10:50 | disposition home or self-care (01) | DRG 750 ==
LOC: EMS 12:03 → B3A 19:24 → B2S 10-20 12:16
PROVIDERS: ADMIT Psychiatry & Neurology Psychiatry; ATTEND Psychiatry & Neurology Psychiatry
PROC: GZHZZZZ Group Psychotherapy (ICD-10-PCS; principal; 2023-10-15)
PROC: GZ52ZZZ Individual Psychotherapy, Cognitive (ICD-10-PCS; 2023-10-15)
DX: F20.0 Paranoid schizophrenia (principal); R45.851 Suicidal ideations; F79 Unspecified intellectual disabilities; Z20.822 Contact with and (suspected) exposure to COVID-19; F32.A Depression, unspecified; G47.00 Insomnia, unspecified; K59.00 Constipation, unspecified; I10 Essential (primary) hypertension; F41.9 Anxiety disorder, unspecified; Z72.0 Tobacco use; Z79.899 Other long term (current) drug therapy; Z91.048 Other nonmedicinal substance allergy status; Z91.199 Patient's noncompliance with other medical treatment and regimen due to unspecified reason
CPT/HCPCS: 80053; 80164; 80307; 81003; 85025; 99285; G0480